=== PATIENT | male | born 1955 | race Caucasian/White ===

== ENCOUNTER 2023-10-27 23:58 | Inpatient (IN) | payer MEDICARE, OTHER ==
[~2023-10-27] VITALS: Ht 180.3 cm; Wt 83.9 kg
[2023-10-28] VITALS (7 sets, daily range): BP systolic 104–118; BP diastolic 67–71; TEMP 97.6–97.7; O2SAT 95–99
[2023-10-28] MEDS ORDERED: IPRATROPIUM BROMIDE 0.5 MG/2.5 ML NEBU ONE (00:43)
[2023-10-28] MEDS ORDERED: ALBUTEROL SULFATE 2.5 MG/3 ML NEBU ONE (00:43)
[2023-10-28] MEDS ORDERED: methylPREDNISolone SOD SUCC 125 MG/2 ML VIAL IV ONE (00:45)
[2023-10-28] MEDS ORDERED: IV NORMAL SALINE 500 ML BAG IV ONE (00:45)
[2023-10-28] MEDS ORDERED: ALBUTEROL SULFATE 2.5 MG/3 ML NEBU NEB ONE (00:45)
[2023-10-28] MEDS ORDERED: IPRATROPIUM BROMIDE 0.5 MG/2.5 ML NEBU NEB ONE (00:45)
[2023-10-28 01:03] LABS: BASOPHILS # (AUTO) 0.2 K/UL (0.0-0.2); BASOPHILS % (AUTO) 1.7 % (0.0-2.0); DIFFERENTIAL COMMENT 1; EOSINOPHILS # (AUTO) 0.3 K/uL (0.0-0.7); EOSINOPHILS % (AUTO) 2.6 % (0.0-7.0); HEMATOCRIT 31.3 % (36.7-47.1); HEMOGLOBIN 9.5 g/dL (12.5-16.3); LYMPHOCYTES # (AUTO) 0.5 K/uL (0.8-4.8); LYMPHOCYTES % (AUTO) 4.7 % (20.5-51.5); MEAN CORPUSCULAR HEMOGLOBIN 26.4 uug (23.8-33.4); MEAN CORPUSCULAR HGB CONC 30 g/dL (32.5-36.3); MEAN CORPUSCULAR VOLUME 86.9 fL (73.0-96.2); MONOCYTES % (AUTO) 10.2 % (0.0-11.0); NEUTROPHILS # (AUTO) 8.2 K/uL (1.8-8.9); NEUTROPHILS % (AUTO) 80.8 % (38.5-71.5); PLATELET COUNT (AUTO) 359 K/uL (152-348); RED CELL DISTRIBUTION WIDTH 20.5 % (12.1-16.2); WHITE BLOOD COUNT (AUTO) 10.1 K/uL (3.6-10.2)
[2023-10-28 01:06] LABS: ABG BASE EXCESS -1.5 mmol/L (-2.0-2.0); ABG HCO3 23.2 mmol/L (22.0-26.0); ABG PCO2 38.8 mmHg (35.0-48.0); ABG PH 7.395 (7.340-7.440); ABG PO2 82.8 mmHg (75.0-100.0); ABG SITE RIGHT RADIAL; ABG TOTAL HEMOGLOBIN 9.7 G/dL (14.0-18.0); AaDO2 96.2 mmHg; COHb 0.9 % (0.0-3.9); MetHb 0.1 % (0.0-1.5); O2Hb 94.8 % (94.0-97.0)
[2023-10-28 01:14] LABS: CALCIUM 8.4 mg/dL (8.5-10.1); CARBON DIOXIDE 24 mmol/L (21-32); CHLORIDE 106 mmol/L (98-107); CREATININE 0.9 mg/dL (0.6-1.3); GLUCOSE 91 mg/dL (74-106); POTASSIUM 4.3 mmol/L (3.5-5.1); SODIUM SERUM 141 mmol/L (136-145); UREA NITROGEN, BLOOD 16 mg/dL (7-18)
[2023-10-28] MEDS ORDERED: levoFLOXacin 750 MG/D5W 150 ML PIGGYBACK IV ONE (01:15)
[2023-10-28 01:27] LABS: ALANINE AMINOTRANSFERASE 11 U/L (16-63); ALBUMIN 2.7 g/dL (3.4-5.0); ALKALINE PHOSPHATASE 179 U/L (50-136); ASPARTATE AMINOTRANSFERASE 28 U/L (15-37); BILIRUBIN,DIRECT 0.4 mg/dL (0.0-0.2); BILIRUBIN,TOTAL 0.8 mg/dL (0.2-1.0); NT-PRO BNP 5455 pg/mL (0-125); TOTAL PROTEIN, SERUM 7.4 g/dL (6.4-8.2)
[2023-10-28] MEDS ORDERED: methylPREDNISolone SOD SUCC 125 MG/2 ML VIAL ONE (05:57)
[2023-10-28] MEDS ORDERED: levoFLOXacin 750MG/D5W 150 ML IV ONE (05:58)
[2023-10-28] MEDS ORDERED: REMEDY ESSENTIAL ZINC PASTE 113 GM TP PRN ×2 (09:30)
[2023-10-28] MEDS ORDERED: MAGNESIUM HYDROXIDE 30 ML LIQUID UDC PO PRN ×2 (09:30)
[2023-10-28] MEDS ORDERED: ACETAMINOPHEN 325 MG TABLET PO PRN ×2 (09:30)
[2023-10-28] MEDS ORDERED: ONDANSETRON 4 MG/2 ML VIAL IV PRN ×2 (09:30)
[2023-10-28] MEDS ORDERED: IPRATROPIUM BROMIDE 0.5 MG/2.5 ML NEBU NEB PRN (09:30)
[2023-10-28] MEDS ORDERED: ALBUTEROL SULFATE 2.5 MG/3 ML NEBU NEB PRN (09:30)
[2023-10-28] MEDS ORDERED: MELA5TAB PO (12:26)
[2023-10-28] MEDS ORDERED: ZINC SULFATE PO (12:27)
[2023-10-28] MEDS ORDERED: ASCO500T85 PO (12:29)
[2023-10-28] MEDS ORDERED: SPIR50TA5 PO (12:30)
[2023-10-28] MEDS ORDERED: TRAZ-182 PO (12:30)
[2023-10-28] MEDS ORDERED: COLL30OI TOP (12:32)
[2023-10-28] MEDS ORDERED: ACET325T53 PO (12:33)
[2023-10-28] MEDS ORDERED: MIDO5TAB5 PO (12:34)
[2023-10-28] MEDS ORDERED: NITR0.4T48 SL (12:36)
[2023-10-28] MEDS ORDERED: FERR-68 PO (12:37)
[2023-10-28] MEDS ORDERED: METO25TA6 PO (12:38)
[2023-10-28] MEDS ORDERED: ASPI-1169 PO (12:39)
[2023-10-28] MEDS ORDERED: APIX5TAB PO (12:41)
[2023-10-28] MEDS ORDERED: AMIO200T5 PO (12:41)
[2023-10-28] MEDS ORDERED: DOCU100T2 PO (12:42)
[2023-10-28] MEDS ORDERED: MULT-213 PO (12:46)
[2023-10-28] MEDS ORDERED: VITAMIN D3 PO (12:46)
[2023-10-28] MEDS ORDERED: UMEC62.5 IH (12:47)
[2023-10-28] MEDS ORDERED: SUCR1TAB PO (12:48)
[2023-10-28] MEDS ORDERED: LEVO25TA9 PO (12:49)
[2023-10-28] MEDS ORDERED: PANT40TA49 PO (12:51)
[2023-10-28] MEDS ORDERED: TAMS-3 PO (12:52)
[2023-10-28] MEDS ORDERED: MONT10TA33 PO (12:53)
[2023-10-28] MEDS: CEFEPIME HCL 1 G in IV DEXTROSE 5% 50 ML IV SCH ×2 (12:53→21:08)
[2023-10-28] MEDS ORDERED: CALC-494 PO (12:54)
[2023-10-28] MEDS ORDERED: HYDR-894 PO (12:55)
[2023-10-28] MEDS ORDERED: TRAM50TA2 PO (12:56)
[2023-10-28] MEDS ORDERED: CALCIUM CARBONATE 500 MG TABLET PO PRN (13:15)
[2023-10-28] MEDS ORDERED: NITROGLYCERIN 0.4 MG/TAB BOTTLE SL PRN (13:15)
[2023-10-28] MEDS ORDERED: hydrALAZINE HCL 25 MG TABLET PO PRN (13:15)
[2023-10-28] MEDS ORDERED: MIDODRINE HCL 5 MG TABLET PO PRN (13:15)
[2023-10-28] MEDS ORDERED: HOME MED MISCELLANEOUS XX SCH (13:15)
[2023-10-28] MEDS ORDERED: ACETAMINOPHEN 325 MG TABLET-SA PATIENTS-PAIN ONLY PO PRN (13:15)
[2023-10-28] MEDS: methylPREDNISolone SOD SUCC 40 MG/ML VIAL IV SCH ×2 (13:59→22:15)
[2023-10-28] MEDS ORDERED: PANTOPRAZOLE SODIUM 40 MG TABLET.DR PO SCH (16:30)
[2023-10-28] MEDS: SUCRALFATE 1 G TABLET PO SCH (16:41)
[2023-10-28] MEDS ORDERED: DOXYCYCLINE HYCLATE IV 100 MG in IV DEXTROSE 5% 100 ML IV SCH (21:00)
[2023-10-28] MEDS: TRAZODONE 50 MG TABLET PO SCH (21:03)
[2023-10-28] MEDS: DOCUSATE SODIUM 100 MG CAPSULE PO SCH (21:03)
[2023-10-28] MEDS: TAMSULOSIN HCL 0.4 MG CAP.SR.24H PO SCH (21:03)
[2023-10-28] MEDS: MONTELUKAST SODIUM 10 MG TABLET PO SCH (21:03)
[2023-10-28] MEDS: METOPROLOL TARTRATE 25 MG TABLET PO SCH (21:05)
[2023-10-28] MEDS: APIXABAN 5 MG TABLET PO SCH (21:06)
[2023-10-28] MEDS: VANCOMYCIN IV 1,000 MG in IV DEXTROSE 5% 250 ML IV SCH (21:45)
[2023-10-28] MEDS ORDERED: METRONIDAZOLE 500 MG/NS 100ML 100 ML IV ONE ×2 (23:27)
[2023-10-28] MEDS: METRONIDAZOLE 500 MG/NS 100ML 500 MG in PREMIXED 1 EACH IV SCH (23:38)
[2023-10-29] VITALS (7 sets, daily range): BP systolic 99–111; BP diastolic 61–68; TEMP 97.3–97.8; O2SAT 96–99
[2023-10-29] MEDS: METRONIDAZOLE 500 MG/NS 100ML 500 MG in PREMIXED 1 EACH IV SCH ×3 (05:42→22:57)
[2023-10-29] MEDS: methylPREDNISolone SOD SUCC 40 MG/ML VIAL IV SCH ×2 (05:42→21:48)
[2023-10-29] MEDS: PANTOPRAZOLE SODIUM 40 MG TABLET.DR PO SCH (06:10)
[2023-10-29] MEDS: LEVOTHYROXINE SODIUM 25 MCG TABLET PO SCH (06:11)
[2023-10-29] MEDS: SUCRALFATE 1 G TABLET PO SCH ×3 (06:32→16:18)
[2023-10-29 07:27] LABS: BASOPHILS % (AUTO) 0.3 % (0.0-2.0); HEMATOCRIT 27.3 % (36.7-47.1); HEMOGLOBIN 8.6 g/dL (12.5-16.3); LYMPHOCYTES # (AUTO) 0.3 K/uL (0.8-4.8); LYMPHOCYTES % (AUTO) 4.9 % (20.5-51.5); MEAN CORPUSCULAR HEMOGLOBIN 26.9 uug (23.8-33.4); MEAN CORPUSCULAR HGB CONC 31 g/dL (32.5-36.3); MONOCYTES # (AUTO) 0.2 K/uL (0.1-1.30); MONOCYTES % (AUTO) 2.9 % (0.0-11.0); NEUTROPHILS # (AUTO) 5.2 K/uL (1.8-8.9); NEUTROPHILS % (AUTO) 91.9 % (38.5-71.5); PLATELET COUNT (AUTO) 337 K/uL (152-348); RED BLOOD CELL COUNT(AUTO) 3.18 MIL/uL (4.06-5.63); RED CELL DISTRIBUTION WIDTH 20.1 % (12.1-16.2); WHITE BLOOD COUNT (AUTO) 5.6 K/uL (3.6-10.2)
[2023-10-29 07:39] LABS: DIFFERENTIAL COMMENT 1
[2023-10-29 07:57] LABS: CALCIUM 8.1 mg/dL (8.5-10.1); CREATININE 0.7 mg/dL (0.6-1.3); MAGNESIUM 1.9 mg/dL (1.8-2.4); PHOSPHOROUS 2.9 mg/dL (2.5-4.9); POTASSIUM 4.5 mmol/L (3.5-5.1)
[2023-10-29 08:32] LABS: HIV-1 p24 ANTIGEN NON REACTIVE (NONREACTIVE); HIV-1/2 ANTIBODY NON REACTIVE (NONREACTIVE)
[2023-10-29] MEDS ORDERED: COLLAGENASE OINT 30 GM TUBE TOP SCH (09:00)
[2023-10-29] MEDS ORDERED: AMIODARONE HCL 200 MG TABLET PO SCH (09:00)
[2023-10-29] MEDS: CEFEPIME HCL 1 G in IV DEXTROSE 5% 50 ML IV SCH ×2 (09:22→21:58)
[2023-10-29] MEDS: ASCORBIC ACID 500 MG TABLET PO SCH (09:50)
[2023-10-29] MEDS: DOCUSATE SODIUM 100 MG CAPSULE PO SCH ×2 (09:50→21:48)
[2023-10-29] MEDS: ZINC SULFATE 220 MG CAPSULE PO SCH (09:50)
[2023-10-29] MEDS: ASPIRIN 81 MG TAB.CHEW PO SCH (09:50)
[2023-10-29] MEDS: FERROUS SULFATE 325 MG TABEC PO SCH (09:50)
[2023-10-29] MEDS: CHOLECALCIFEROL 400 UNITS TABLET PO SCH (09:51)
[2023-10-29] MEDS: FUROSEMIDE 40 MG/4 ML VIAL IV SCH ×2 (10:01→21:48)
[2023-10-29] MEDS: MULTIVIT, IRON, MIN NO. 8, FA TABLET PO SCH (10:02)
[2023-10-29] MEDS: SPIRONOLACTONE 50 MG TABLET PO SCH (10:02)
[2023-10-29] MEDS: METOPROLOL TARTRATE 25 MG TABLET PO SCH ×2 (10:08→21:49)
[2023-10-29] MEDS: APIXABAN 5 MG TABLET PO SCH ×2 (10:11→21:48)
[2023-10-29] MEDS: VANCOMYCIN IV 1,000 MG in IV DEXTROSE 5% 250 ML IV SCH (10:12)
[2023-10-29] MEDS: MEDIHONEY= THERAHONEY 1.5 OZ TUBE TOP SCH (10:13)
[2023-10-29] MEDS: CLOTRIMAZOLE 1% CREAM 30 GM TUBE TOP SCH (16:19)
[2023-10-29] MEDS: VANCOMYCIN IV 1,250 MG in IV DEXTROSE 5% 250 ML IV SCH (20:00)
[2023-10-29] MEDS: TAMSULOSIN HCL 0.4 MG CAP.SR.24H PO SCH (21:48)
[2023-10-29] MEDS: MONTELUKAST SODIUM 10 MG TABLET PO SCH (21:49)
[2023-10-29] MEDS: TRAZODONE 50 MG TABLET PO SCH (21:49)
[2023-10-30 00:24] VITALS: BP 101/60; TEMP 97.4; O2SAT 100
[2023-10-30 04:00] VITALS: BP 97/54; TEMP 97.2; O2SAT 100
[2023-10-30] MEDS: METRONIDAZOLE 500 MG/NS 100ML 500 MG in PREMIXED 1 EACH IV SCH ×3 (05:43→21:56)
[2023-10-30] MEDS: PANTOPRAZOLE SODIUM 40 MG TABLET.DR PO SCH (06:33)
[2023-10-30] MEDS: LEVOTHYROXINE SODIUM 25 MCG TABLET PO SCH (06:33)
[2023-10-30] MEDS: VANCOMYCIN IV 1,250 MG in IV DEXTROSE 5% 250 ML IV SCH ×2 (06:33→18:05)
[2023-10-30] MEDS: SUCRALFATE 1 G TABLET PO SCH ×3 (06:33→16:53)
[2023-10-30 07:37] LABS: BASOPHILS % (AUTO) 0.1 % (0.0-2.0); DIFFERENTIAL COMMENT 0; EOSINOPHILS % (AUTO) 0.3 % (0.0-7.0); HEMATOCRIT 29.2 % (36.7-47.1); HEMOGLOBIN 8.9 g/dL (12.5-16.3); LYMPHOCYTES # (AUTO) 0.3 K/uL (0.8-4.8); MEAN CORPUSCULAR HEMOGLOBIN 26.2 uug (23.8-33.4); MEAN CORPUSCULAR HGB CONC 31 g/dL (32.5-36.3); MEAN CORPUSCULAR VOLUME 85.4 fL (73.0-96.2); MONOCYTES # (AUTO) 0.7 K/uL (0.1-1.30); MONOCYTES % (AUTO) 5.8 % (0.0-11.0); NEUTROPHILS # (AUTO) 11.7 K/uL (1.8-8.9); NEUTROPHILS % (AUTO) 91.8 % (38.5-71.5); PLATELET COUNT (AUTO) 358 K/uL (152-348); RED BLOOD CELL COUNT(AUTO) 3.41 MIL/uL (4.06-5.63); RED CELL DISTRIBUTION WIDTH 19.8 % (12.1-16.2); WHITE BLOOD COUNT (AUTO) 12.7 K/uL (3.6-10.2)
[2023-10-30 07:51] LABS: CALCIUM 8.3 mg/dL (8.5-10.1); CREATININE 0.9 mg/dL (0.6-1.3); PHOSPHOROUS 3.1 mg/dL (2.5-4.9); POTASSIUM 4.4 mmol/L (3.5-5.1)
[2023-10-30] MEDS: METOPROLOL TARTRATE 25 MG TABLET PO SCH ×2 (09:00→21:00)
[2023-10-30] MEDS: DOCUSATE SODIUM 100 MG CAPSULE PO SCH ×2 (09:13→20:58)
[2023-10-30] MEDS: ASPIRIN 81 MG TAB.CHEW PO SCH (09:13)
[2023-10-30] MEDS: ASCORBIC ACID 500 MG TABLET PO SCH (09:13)
[2023-10-30] MEDS: CHOLECALCIFEROL 400 UNITS TABLET PO SCH (09:13)
[2023-10-30] MEDS: methylPREDNISolone SOD SUCC 40 MG/ML VIAL IV SCH ×2 (09:22→20:43)
[2023-10-30] MEDS: CEFEPIME HCL 1 G in IV DEXTROSE 5% 50 ML IV SCH ×2 (09:22→20:43)
[2023-10-30] MEDS: FERROUS SULFATE 325 MG TABEC PO SCH (09:23)
[2023-10-30] MEDS: ZINC SULFATE 220 MG CAPSULE PO SCH (09:23)
[2023-10-30] MEDS: SPIRONOLACTONE 50 MG TABLET PO SCH (09:23)
[2023-10-30] MEDS: MULTIVIT, IRON, MIN NO. 8, FA TABLET PO SCH (09:23)
[2023-10-30] MEDS: FUROSEMIDE 40 MG/4 ML VIAL IV SCH ×2 (09:23→20:43)
[2023-10-30] MEDS: MEDIHONEY= THERAHONEY 1.5 OZ TUBE TOP SCH (09:25)
[2023-10-30] MEDS: CLOTRIMAZOLE 1% CREAM 30 GM TUBE TOP SCH ×2 (09:25→16:54)
[2023-10-30] MEDS: APIXABAN 5 MG TABLET PO SCH ×2 (09:26→20:46)
[2023-10-30 09:30] VITALS: O2SAT 98
[2023-10-30 11:40] VITALS: BP 96/59; TEMP 97.4; O2SAT 97
[2023-10-30] MEDS: MUPIROCIN 2% OINT 22 GM TUBE TP SCH (14:20)
[2023-10-30 15:40] VITALS: BP 91/56; TEMP 97.4; O2SAT 98
[2023-10-30 20:00] VITALS: BP 93/61; TEMP 97; O2SAT 96
[2023-10-30] MEDS: TRAZODONE 50 MG TABLET PO SCH (20:43)
[2023-10-30] MEDS: MONTELUKAST SODIUM 10 MG TABLET PO SCH (20:44)
[2023-10-30] MEDS: TAMSULOSIN HCL 0.4 MG CAP.SR.24H PO SCH (20:44)
[2023-10-30] MEDS: TRAMADOL HCL 50 MG TABLET PO PRN (22:00)
[2023-10-31] VITALS (7 sets, daily range): BP systolic 93–133; BP diastolic 55–64; TEMP 97–98; O2SAT 93–100
[2023-10-31] MEDS: PANTOPRAZOLE SODIUM 40 MG TABLET.DR PO SCH (05:38)
[2023-10-31] MEDS: METRONIDAZOLE 500 MG/NS 100ML 500 MG in PREMIXED 1 EACH IV SCH ×2 (05:43→14:30)
[2023-10-31] MEDS: LEVOTHYROXINE SODIUM 25 MCG TABLET PO SCH (05:54)
[2023-10-31] MEDS: SUCRALFATE 1 G TABLET PO SCH ×3 (07:46→16:38)
[2023-10-31] MEDS: METOPROLOL TARTRATE 25 MG TABLET PO SCH ×2 (09:00→20:42)
[2023-10-31] MEDS ORDERED: MUPIROCIN 2% OINT 22 GM TUBE TP SCH (09:00)
[2023-10-31] MEDS: ASCORBIC ACID 500 MG TABLET PO SCH (09:29)
[2023-10-31] MEDS: CHOLECALCIFEROL 400 UNITS TABLET PO SCH (09:29)
[2023-10-31] MEDS: ASPIRIN 81 MG TAB.CHEW PO SCH (09:29)
[2023-10-31] MEDS: CEFEPIME HCL 1 G in IV DEXTROSE 5% 50 ML IV SCH (09:29)
[2023-10-31] MEDS: MULTIVIT, IRON, MIN NO. 8, FA TABLET PO SCH (09:29)
[2023-10-31] MEDS: ZINC SULFATE 220 MG CAPSULE PO SCH (09:30)
[2023-10-31] MEDS: FERROUS SULFATE 325 MG TABEC PO SCH (09:30)
[2023-10-31] MEDS: DOCUSATE SODIUM 100 MG CAPSULE PO SCH ×2 (09:30→20:33)
[2023-10-31] MEDS: SPIRONOLACTONE 50 MG TABLET PO SCH (09:30)
[2023-10-31] MEDS: FUROSEMIDE 40 MG/4 ML VIAL IV SCH (09:35)
[2023-10-31] MEDS: APIXABAN 5 MG TABLET PO SCH ×2 (09:35→20:41)
[2023-10-31] MEDS: MEDIHONEY= THERAHONEY 1.5 OZ TUBE TOP SCH (09:36)
[2023-10-31] MEDS: MUPIROCIN 2% OINT 22 GM TUBE TP SCH (09:37)
[2023-10-31] MEDS: CLOTRIMAZOLE 1% CREAM 30 GM TUBE TOP SCH ×2 (09:37→18:19)
[2023-10-31] MEDS: predniSONE 20 MG TABLET PO SCH (18:19)
[2023-10-31] MEDS: TRAZODONE 50 MG TABLET PO SCH (20:41)
[2023-10-31] MEDS: TAMSULOSIN HCL 0.4 MG CAP.SR.24H PO SCH (20:41)
[2023-10-31] MEDS: MONTELUKAST SODIUM 10 MG TABLET PO SCH (20:42)
[2023-10-31] MEDS: TRAMADOL HCL 50 MG TABLET PO PRN (20:42)
[2023-11-01] VITALS (7 sets, daily range): BP systolic 93–141; BP diastolic 53–84; TEMP 97.2–98.2; O2SAT 93–99
[2023-11-01] MEDS: LEVOTHYROXINE SODIUM 25 MCG TABLET PO SCH (05:49)
[2023-11-01] MEDS: PANTOPRAZOLE SODIUM 40 MG TABLET.DR PO SCH (05:49)
[2023-11-01 06:43] LABS: BASOPHILS % (AUTO) 0.1 % (0.0-2.0); HEMATOCRIT 26.7 % (36.7-47.1); HEMOGLOBIN 8.5 g/dL (12.5-16.3); LYMPHOCYTES # (AUTO) 0.3 K/uL (0.8-4.8); LYMPHOCYTES % (AUTO) 2.3 % (20.5-51.5); MEAN CORPUSCULAR HEMOGLOBIN 26.6 uug (23.8-33.4); MEAN CORPUSCULAR HGB CONC 32 g/dL (32.5-36.3); MEAN CORPUSCULAR VOLUME 83.7 fL (73.0-96.2); MONOCYTES # (AUTO) 1.1 K/uL (0.1-1.30); MONOCYTES % (AUTO) 8.6 % (0.0-11.0); NEUTROPHILS # (AUTO) 11.7 K/uL (1.8-8.9); PLATELET COUNT (AUTO) 346 K/uL (152-348); RED BLOOD CELL COUNT(AUTO) 3.19 MIL/uL (4.06-5.63); RED CELL DISTRIBUTION WIDTH 20.3 % (12.1-16.2); WHITE BLOOD COUNT (AUTO) 13.2 K/uL (3.6-10.2)
[2023-11-01 06:52] LABS: DIFFERENTIAL COMMENT 1
[2023-11-01 07:19] LABS: CALCIUM 8.3 mg/dL (8.5-10.1); CREATININE 0.9 mg/dL (0.6-1.3); MAGNESIUM 2.2 mg/dL (1.8-2.4); PHOSPHOROUS 2.6 mg/dL (2.5-4.9); POTASSIUM 4.5 mmol/L (3.5-5.1)
[2023-11-01] MEDS: SUCRALFATE 1 G TABLET PO SCH ×3 (07:30→16:49)
[2023-11-01] MEDS: ASPIRIN 81 MG TAB.CHEW PO SCH (08:42)
[2023-11-01] MEDS: BUMETANIDE 1 MG TABLET PO SCH (08:43)
[2023-11-01] MEDS: predniSONE 20 MG TABLET PO SCH ×2 (08:48→16:49)
[2023-11-01] MEDS: DOCUSATE SODIUM 100 MG CAPSULE PO SCH ×2 (08:48→21:00)
[2023-11-01] MEDS: FERROUS SULFATE 325 MG TABEC PO SCH (08:48)
[2023-11-01] MEDS: CHOLECALCIFEROL 400 UNITS TABLET PO SCH (08:48)
[2023-11-01] MEDS: APIXABAN 5 MG TABLET PO SCH ×2 (08:48→23:02)
[2023-11-01] MEDS: SPIRONOLACTONE 50 MG TABLET PO SCH (08:49)
[2023-11-01] MEDS: ZINC SULFATE 220 MG CAPSULE PO SCH (08:49)
[2023-11-01] MEDS: MULTIVIT, IRON, MIN NO. 8, FA TABLET PO SCH (08:49)
[2023-11-01] MEDS: ASCORBIC ACID 500 MG TABLET PO SCH (08:49)
[2023-11-01] MEDS: CLOTRIMAZOLE 1% CREAM 30 GM TUBE TOP SCH ×2 (08:49→16:50)
[2023-11-01] MEDS: MEDIHONEY= THERAHONEY 1.5 OZ TUBE TOP SCH (08:50)
[2023-11-01] MEDS: MUPIROCIN 2% OINT 22 GM TUBE TP SCH (08:50)
[2023-11-01] MEDS: METOPROLOL TARTRATE 25 MG TABLET PO SCH ×2 (08:55→22:57)
[2023-11-01] MEDS ORDERED: LOPERAMIDE HCL 2 MG CAPSULE PO PRN (11:30)
[2023-11-01] MEDS: TAMSULOSIN HCL 0.4 MG CAP.SR.24H PO SCH (22:54)
[2023-11-01] MEDS: MONTELUKAST SODIUM 10 MG TABLET PO SCH (22:54)
[2023-11-01] MEDS: TRAZODONE 50 MG TABLET PO SCH (22:54)
[2023-11-01] MEDS: TRAMADOL HCL 50 MG TABLET PO PRN (22:59)
[2023-11-02 06:29] LABS: BASOPHILS % (AUTO) 0.2 % (0.0-2.0); EOSINOPHILS % (AUTO) 0.1 % (0.0-7.0); HEMATOCRIT 26.8 % (36.7-47.1); HEMOGLOBIN 8.5 g/dL (12.5-16.3); LYMPHOCYTES # (AUTO) 0.3 K/uL (0.8-4.8); LYMPHOCYTES % (AUTO) 2.7 % (20.5-51.5); MEAN CORPUSCULAR HEMOGLOBIN 26.3 uug (23.8-33.4); MEAN CORPUSCULAR HGB CONC 32 g/dL (32.5-36.3); MEAN CORPUSCULAR VOLUME 83.1 fL (73.0-96.2); MONOCYTES % (AUTO) 8.3 % (0.0-11.0); NEUTROPHILS # (AUTO) 10.6 K/uL (1.8-8.9); NEUTROPHILS % (AUTO) 88.7 % (38.5-71.5); PLATELET COUNT (AUTO) 332 K/uL (152-348); RED BLOOD CELL COUNT(AUTO) 3.22 MIL/uL (4.06-5.63); RED CELL DISTRIBUTION WIDTH 19.9 % (12.1-16.2); WHITE BLOOD COUNT (AUTO) 11.9 K/uL (3.6-10.2)
[2023-11-02 06:56] LABS: CALCIUM 8.4 mg/dL (8.5-10.1); CREATININE 0.8 mg/dL (0.6-1.3); MAGNESIUM 2.2 mg/dL (1.8-2.4); PHOSPHOROUS 2.6 mg/dL (2.5-4.9); POTASSIUM 4.7 mmol/L (3.5-5.1)
[2023-11-02] MEDS: SUCRALFATE 1 G TABLET PO SCH ×3 (07:30→16:18)
[2023-11-02 07:32] LABS: DIFFERENTIAL COMMENT 1
[2023-11-02] MEDS: LEVOTHYROXINE SODIUM 25 MCG TABLET PO SCH (08:47)
[2023-11-02] MEDS: PANTOPRAZOLE SODIUM 40 MG TABLET.DR PO SCH (08:47)
[2023-11-02] MEDS: MULTIVIT, IRON, MIN NO. 8, FA TABLET PO SCH (09:08)
[2023-11-02] MEDS: ASPIRIN 81 MG TAB.CHEW PO SCH (09:08)
[2023-11-02] MEDS: SPIRONOLACTONE 50 MG TABLET PO SCH (09:08)
[2023-11-02] MEDS: BUMETANIDE 1 MG TABLET PO SCH (09:08)
[2023-11-02] MEDS: ASCORBIC ACID 500 MG TABLET PO SCH (09:09)
[2023-11-02] MEDS: FERROUS SULFATE 325 MG TABEC PO SCH (09:09)
[2023-11-02] MEDS: CHOLECALCIFEROL 400 UNITS TABLET PO SCH (09:09)
[2023-11-02] MEDS: ZINC SULFATE 220 MG CAPSULE PO SCH (09:09)
[2023-11-02] MEDS: predniSONE 20 MG TABLET PO SCH ×2 (09:09→17:21)
[2023-11-02] MEDS: DOCUSATE SODIUM 100 MG CAPSULE PO SCH (09:09)
[2023-11-02] MEDS: APIXABAN 5 MG TABLET PO SCH (09:10)
[2023-11-02] MEDS: MUPIROCIN 2% OINT 22 GM TUBE TP SCH (09:16)
[2023-11-02] MEDS: CLOTRIMAZOLE 1% CREAM 30 GM TUBE TOP SCH ×2 (09:16→16:19)
[2023-11-02] MEDS: METOPROLOL TARTRATE 25 MG TABLET PO SCH (09:16)
[2023-11-02] MEDS: MEDIHONEY= THERAHONEY 1.5 OZ TUBE TOP SCH (09:17)
[2023-11-02 11:30] VITALS: BP 94/60; TEMP 97.8; O2SAT 96
[2023-11-02] MEDS ORDERED: ACETAzolamide 250 MG TABLET PO ONE (11:30)
[2023-11-02] MEDS ORDERED: BUME1TAB8 PO (13:06)
[2023-11-02] MEDS ORDERED: POTA8CAP20 PO (13:09)
[2023-11-02 15:45] VITALS: BP 91/47; TEMP 97.9; O2SAT 96
[2023-11-02 16:18] VITALS: BP 81/47
[2023-11-03] MEDS ORDERED: BUMETANIDE 1 MG TABLET PO SCH (09:00)
== END 2023-11-02 18:00 | DRG 291 ==
LOC: ER 10-28 00:20 → TELE3 10-28 09:46
PROVIDERS: ADMIT Nurse Practitioner Acute Care; ATTEND Nurse Practitioner Acute Care
PROC: 05HB33Z Insertion of Infusion Device into Right Basilic Vein, Percutaneous Approach (ICD-10-PCS; principal; 2023-10-28)
DX: I11.0 Hypertensive heart disease with heart failure (principal); I50.33 Acute on chronic diastolic (congestive) heart failure; J96.01 Acute respiratory failure with hypoxia; I48.20 Chronic atrial fibrillation, unspecified; R04.2 Hemoptysis; I08.3 Combined rheumatic disorders of mitral, aortic and tricuspid valves; F31.9 Bipolar disorder, unspecified; F10.11 Alcohol abuse, in remission; M79.89 Other specified soft tissue disorders; E03.9 Hypothyroidism, unspecified; K70.9 Alcoholic liver disease, unspecified; I27.20 Pulmonary hypertension, unspecified; J43.9 Emphysema, unspecified; D64.9 Anemia, unspecified; L60.3 Nail dystrophy; Z79.01 Long term (current) use of anticoagulants; M20.42 Other hammer toe(s) (acquired), left foot; M20.41 Other hammer toe(s) (acquired), right foot; B35.1 Tinea unguium; R23.4 Changes in skin texture; I25.10 Atherosclerotic heart disease of native coronary artery without angina pectoris; E78.5 Hyperlipidemia, unspecified; I42.9 Cardiomyopathy, unspecified; N40.0 Benign prostatic hyperplasia without lower urinary tract symptoms; K21.9 Gastro-esophageal reflux disease without esophagitis; Z95.2 Presence of prosthetic heart valve; Z91.013 Allergy to seafood; Z87.891 Personal history of nicotine dependence; Z91.041 Radiographic dye allergy status; Z79.899 Other long term (current) drug therapy; Z79.82 Long term (current) use of aspirin
CPT/HCPCS: 36415; 36600; 71045; 71250; 78580; 83605; 83735; 84100; 84484; 85025; 86803; 87040; 87806; 93005; 93307; A4663; A6209; A9540; G0378; J0692; J1940; J1956; J2920; J2930; J3370; J3490; J3590; J7040; J7050; J7512; J8499